=== PATIENT | female | born 1955 | race Caucasian/White ===

== ENCOUNTER 2019-05-13 13:00 | Inpatient (IN) | payer OTHER, SELFPAY ==
[2019-05-02 13:02] VITALS: BMI 27.6
[2019-05-13] VITALS (15 sets, daily range): BP systolic 109–162; BP diastolic 56–94; PULSE 74–892; RESP 13–97; TEMP 36.7–37.2; O2SAT 94–99; BMI 27.6
--- NOTE | 2019-05-13 | DI.RAD.S_ITS ---
PROCEDURE: XR CERVICAL SPINE 2V OR 3V INDICATIONS: ACDF 4-5, 6-7 TECHNIQUE: 2 view(s) of the cervical spine were acquired. COMPARISON: [facility] , CERVICAL SNRB, 08/19/2018, 8:47. [facility] , CERVICAL SPINE INTERLAMINAR, 06/10/2018, 9:49. FINDINGS: Bones: No fractures or dislocations to the T1 level. This is a immediate postoperative examination after placement of interbody disc prosthesis devices at C4-5 and C6-7. Alignment is normal.. Soft tissues: No prevertebral soft tissue swelling. IMPRESSION: Excellent anatomic alignment after interbody disc prosthesis device placement at C4-5 and C6-7. Dictated by: Arnol Palma M.D. on 05/14/2019 at 8:58 Approved by: Arnol Palma M.D. on 05/14/2019 at 9:00
[2019-05-13] MEDS: LACTATED RINGERS 1,000 ML 42 ML IV ×2 (13:31→16:46)
--- NOTE | 2019-05-13 14:02 | PM.PREOP ---
Pre-operative Note Interval Note History & Physical reviewed/Exam performed by Physician: Yes Changes to H&P: No
--- NOTE | 2019-05-13 14:39 | PM.OP.1 ---
Operative Date/Time/Diagnoses Date of procedure: 05/13/19 Time of procedure: 16:08 Pre-op diagnosis: Cervical stenosis and disc herniation with radiculopathy Post-op diagnosis: same Procedure & Clinicians Procedure: C4-5 anterior cervical diskectomy and fusion with cage Iliac crest bone graft aspirate C6-7 anterior diskectomy an artificial disc replacement Use of microscope Same procedure as scheduled: Yes Indications: [age] year old female with intractable pain from disc herniation. They had failed conservative management and requested operative intervention. Risks and benefits of surgery were discussed and appropriate consents were obtained. Surgeon: Demetri Plasencia Hot Air Furnace Installer And Repairer: Abimbola Chew Anesthesia Type: General Operative Notes Findings: None Closure Type: primary Specimen(s): none sent Prosthetic devices, grafts, tissues, transplants, or devices: Matthias ADELITA-C and Mobi-C Estimated Blood Loss (mL): 5 Procedure in detail: Patient was brought to the operating room and intubated on the table. A time-out was performed. Preoperative antibiotics were given. The neck was prepped and draped in the standard sterile fashion. Using a skin fold, we made a 3 cm oblique incision on the left side. We used Bovie to go through the platysma and then did a standard anterolateral blunt dissection down to the precervical fascia. Fascia was nicked and elevated up. A marker was placed and x-ray was taken for localization. We then subperiosteally elevated up the longus colli muscles. Self-retaining retractors were placed. [place]ago pins were placed under x-ray guidance to be parallel to the endplates. We then brought in the microscope. A scalpel used to perform an annulotomy. We then used a combination of pituitaries and curettes and Kerrison to perform a complete anterior diskectomy at C6-7. We took down the PLL and used Kerrison to remove any posterior disc material and osteophytes. At the end we could from the nerve hook cephalad caudally and out the foramen and everything was opened. We distracted open with the parallel job change crew member. We then used the horseshoes for sizing. We then used the trials. We then inserted a 13 x 15 x 5 size Mobi-C artificial disc replacement under fluoroscopic guidance for positioning. The traction was released and x-ray was checked again. The self-retaining retractors and [place]ago pins were then moved up to C4-5. A scalpel used to perform an annulotomy. We used pituitaries, curettes, and Kerrisons to perform a complete anterior diskectomy at C4-5. We took down the PLL and then used the Kerrison to remove posterior osteophytes. In the end we could sweep the nerve hook and everything was open. We distracted open and trialed. A small stab incision was made over the left anterior pelvis. A Jamshidi needle was placed into the pelvis and 2 ml of bone marrow was aspirated. This was mixed with Primagen bone graft. We then filled a 12 x 15 x 5 mm size ADELITA-C with the bone graft and bone marrow and impacted into the C4-5 space for the ACDF at this level. Position was confirmed under x-ray. We placed our 2 locking plates. The retractors were removed and final x-rays taken. The wound was irrigated. There was no bleeding. The carotid was beating nicely. The platysma was closed. The superficial was closed. The skin was closed. A sterile dressing was placed. They were then extubated and brought to recovery room with no complications. Complications: none Post-operative Condition: stable Disposition: Acute Care Plan for aftercare: Inpatient. Overnight stay and probable discharge home tomorrow.
[2019-05-13] MEDS: CEFAZOLIN 2 GM/100 ML FROZ.PIGGY IV ×2 (14:43→22:58)
--- NOTE | 2019-05-13 15:10 | SUR.OPER ---
Supine on padded OR bed, head on gel doughnut, shoulder rool in shape of a T running between and at the upper portion of bilateral scapula, bilateral arm padded and tucked at side, legs uncrossed, safety belt at thigh, tape over blanket over lower legs .
[2019-05-13] MEDS: BUPIVACAINE 0.25% W/ EPI (PF) 10 ML VIAL 60 ML INJ (15:21)
[2019-05-13] MEDS: THROMBIN (RECOMBINANT) 5,000 UNIT VIAL 5000 UNIT TOP (15:22)
[2019-05-13] MEDS: SODIUM CHLORIDE 0.9% 1,000 ML, GENTAMICIN 80 MG IRR (15:22)
[2019-05-13] MEDS: fentaNYL 100 MCG/2 ML INJ IV ×2 (16:40→16:45)
[2019-05-13] MEDS: HYDROMORPHONE 2 MG INJ IV ×4 (16:45→17:00)
[2019-05-13] MEDS: ONDANSETRON 4 MG/2 ML INJ IV (16:47)
[2019-05-13] MEDS: LORazepam 2 MG/ML INJ 0.25 MG IV ×2 (16:57→17:05)
[2019-05-13] MEDS: SENNOSIDES 8.6 MG TABLET 17.2 MG PO (20:30)
[2019-05-13] MEDS: CELECOXIB 200 MG CAPSULE 400 MG PO (20:30)
[2019-05-13] MEDS: DOCUSATE 100 MG CAPSULE PO (20:30)
[2019-05-13] MEDS: LACTATED RINGERS 1,000 ML 125 ML IV (20:31)
[2019-05-13] MEDS: hydrOXYzine pamoate 25 MG CAPSULE PO (20:47)
[2019-05-13] MEDS: OXYCODONE IR 5 MG TABLET 10 MG PO (21:54)
--- NOTE | 2019-05-13 23:13 | PC.NURSE ---
Post op disketomy. A/O x4, 96% RA, complaints of muscle pain in upper back, some relief from vistaril and oxy. LR running at 125 ml/hr. Able to swallow liquids and soft foods with no signs of trouble swallowing. Says her throat is sore and feels a little tight but when asked if she feels it's affecting her airway she says no. Up to bathroom 1x during shift to void, standby assistance with walker. Pedal SCDs on, call light within reach, spouse at bedside.
[2019-05-13] MEDS: HYDROMORPHONE 1 MG INJ 0.2 MG IV (23:37)
--- NOTE | 2019-05-13 23:56 | PC.NURSE ---
Addendum entered by Analilia Castellanos R.N. 05/14/19 06:12: States pain is still 6/10 but declines any additional pain medication at this time. Addendum entered by Analilia Castellanos R.N. 05/14/19 05:07: Patient changed mind and requesting pain medication for 6/10 neck pain; medicated with Oxycodone + Vistaril. Complains that hurts to swallow but no coughing/choking when taking water with po pain meds; provided ice chips for additional pain relief. Addendum entered by Analilia Castellanos R.N. 05/14/19 04:46: Has been asleep most of shift. Awakened for vital signs and states pain is 5/10 but declines pain medication; was agreeable to having ice pack placed. Original Note: Patient is alert and oriented. Breath sounds CTA with RA sat of 94%. HRR. Denies nausea. Does complain of sore throat but denies difficulty swallowing. Anterior neck dressing is CDI; wearing soft collar. Complains of 6/10 pain in neck/shoulders so medicated with IV Dilaudid as too early to repeat po pain meds and ice applied. BT hypoactive and denies flatus. Up to bathroom with SBA and voiding without dysuria, frequency or urgency; unmeasured void as missed measuring device. Able to move self in bed. CMS is intact although does have chronic tingling in left foot related to hx of ankle surgery but states no change from pre-op. Wearing bilateral SCD's. Fall risk score is moderate; patient agreeable to calling for staff prior to getting out of bed. Spouse rooming in.
[2019-05-14 04:45] VITALS: BP 119/57; PULSE 81; RESP 16; TEMP 37; O2SAT 96
[2019-05-14] MEDS: LACTATED RINGERS 1,000 ML 125 ML IV (04:52)
[2019-05-14] MEDS: OXYCODONE IR 5 MG TABLET PO (05:03)
[2019-05-14] MEDS: hydrOXYzine pamoate 25 MG CAPSULE PO (05:03)
[2019-05-14] MEDS: CEFAZOLIN 2 GM/100 ML FROZ.PIGGY IV (06:10)
[2019-05-14] MEDS: OXYCODONE IR 5 MG TABLET 10 MG PO (08:26)
[2019-05-14] MEDS: LISINOPRIL 20 MG TABLET 40 MG PO (08:27)
[2019-05-14] MEDS: CELECOXIB 200 MG CAPSULE PO (08:27)
[2019-05-14] MEDS: DOCUSATE 100 MG CAPSULE PO (08:27)
--- NOTE | 2019-05-14 08:36 | PM.PNPO.1 ---
Subjective Subjective Date Patient Seen: 05/14/19 Time Patient Seen: 08:36 Interval history: Arms feel better. Pain about 5/10 in the neck Exam Vital Signs (past 8 hours): - 05/14/19 04:45 Temperature 98.6 F Pulse Rate 81 Respiratory Rate 16 Blood Pressure 119/57 L Pulse Oximetry 96 Oxygen Delivery Method Room Air Oxygen Flow Rate 0 Const Orientation: alert and oriented x3 Back/Spine/Pelvis Other: CDI. 5/5 motor both upper extremities Assessment & Plan Post-op Postoperative Procedures: Procedures Operation Date: 05/13/19 14:45 Actual Procedures Side Surgeon p C45 anterior discectomy and fusion w/bone graft and C67 anterior discectomy & artificial disc replacement Demetri Plasencia MD She is doing well. Mobilize with PT this morning the discharge home.
[2019-05-14 09:00] VITALS: BP 130/67; PULSE 90; RESP 16; TEMP 36.6; O2SAT 95
[2019-05-14] MEDS: ESTRADIOL 1 MG TABLET PO (09:22)
--- NOTE | 2019-05-14 09:25 | OT.IP.TRT ---
Current Diagnoses Spinal stenosis, cervical region (05/13/19) Surgery Performed Operation Date: 05/13/19 14:45 Actual Procedures p C45 anterior discectomy and fusion w/bone graft and C67 anterior discectomy & artificial disc replacement - Demetri Plasencia MD Occupational Therapy Treatment Note M3 OT- IP Subjective and Pain Start: 05/14/19 12:53 Freq: Status: Active Protocol: Document 05/14/19 09:45 PJM (Rec: 05/14/19 12:55 PJM [id number]) OT- Subjective Occupational Therapy Visit Type Type Administrative Note Visit Start Time 09:45 Notes OT referral received on this pt s/p C spine surgery. Per discussion with P.T., pt has no OT needs for this admission.
--- NOTE | 2019-05-14 10:16 | PC.NURSE ---
pt prepping for discharge- medicated with 10mg po oxycodone for incisional pain, able to tolerate po for breakfast and voiding well-she worked with PT and has strong follow up plans - removal of iv access at this time. pt getting dressed with assist of spouse
--- NOTE | 2019-05-14 10:28 | SLP.IPNOTE ---
Pt provided education on potential effects of ACDF surgery on swallow and voice function. Information provided orally and in writing. Pt reported some pain and discomfort with swallow and mild vocal changes. She was encouraged to seek RECRUITING ASSOCIATE services should they persist greater than 1-2 weeks. She verbalized understanding of education provided.
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
--- NOTE | 2019-05-14 11:34 | CM.DANOTE ---
DCP Brief Assessment Note Patient is a 63 year old female who was admitted for Day Surgery on 05/13/19 for Cerv Fusion. Pt has [employer] for insurance and her PCP is Dr. Thony Salazar. EMR was reviewed. Per Ortho MD, pt medically stable and pain well controlled for d/c home today after PT and no identified barriers to discharge. Per PT, recommending safe d/c home and outpt PT. SW attempted to meet bedside with pt and arrived bedside around 1000 and pt was dressed and walking out with RN for transport home and pt and RN report no d/c concerns and pt agreeable with d/c today. Plan: Patient discharged home today via private vehicle and outpt PT and no SW needs at this time. JONH Alvarado
== END 2019-05-14 10:55 | disposition home or self-care (01) | DRG 473 ==
LOC: OR 13:01 → AC 13:58 → ICU 05-14 08:36
PROVIDERS: Admitting Provider Orthopaedic Surgery; PCP Family Medicine; Visit Provider Orthopaedic Surgery
PROC: 0RG10A0 Fusion of Cervical Vertebral Joint with Interbody Fusion Device, Anterior Approach, Anterior Column, Open Approach (ICD-10-PCS; principal; 2019-05-13 14:45)
DX: M48.02 Spinal stenosis, cervical region (principal); I10 Essential (primary) hypertension; J45.909 Unspecified asthma, uncomplicated; M50.121 Cervical disc disorder at C4-C5 level with radiculopathy
CPT/HCPCS: 72040; 76000; 97161; C1776; J0690; J1100; J1170; J2060; J2250; J2405; J2704; J3010